=== PATIENT | male | born 1985 | race Caucasian/White ===

== ENCOUNTER → 2017-11-16 | Outpatient (CLI) | payer OTHER ==
[~2017-11-16] MED LIST: NO HOME MEDICATIONS
== END ==
LOC: BHSO 12:33
DX: F43.10 Post-traumatic stress disorder, unspecified (principal)

== ENCOUNTER 2020-03-26 19:14 | Emergency (ER) | payer OTHER ==
[~2020-03-26] VITALS: Ht 167.6 cm; Wt 93.2 kg
[2020-03-26 19:28] VITALS: TEMP 97.6
[2020-03-26] MEDS ORDERED: EFFEXOR XR37.5 MG/CA PO (19:51)
[2020-03-26] MEDS ORDERED: INDERAL 20MG20 MG PO (19:51)
[2020-03-26] MEDS ORDERED: EFFEXOR-XR150 MG PO (19:51)
[2020-03-26 19:52] LABS: BASO # 0.1 (0.0-0.2); BASO % 0.7 % (0.0-2.0); EOS # 0.1 (0.0-0.7); GRAN # 4.1 (1.4-6.5); GRAN % 59.7 % (42.2-75.2); HEMATOCRIT 45.4 % (42.0-52.0); HEMOGLOBIN 15.9 g/dl (13.5-18.0); LYMPH # 1.9 (1.2-3.4); MEAN CELL VOLUME 87 fl (80.0-100.0); MEAN CORPUSCULAR HEMOGLOBIN 30 pg (27.0-31.0); MEAN CORPUSCULAR HGB CONC 35 g/dl (33.0-37.0); MEAN PLATELET VOLUME 8.9 fl (7.4-10.4); MONO # 0.7 (0.1-0.6); MONO % 10.2 % (1.7-9.3); PLATELET COUNT 253 K/mm3 (130-400); RED BLOOD COUNT 5.24 M/mm3 (4.20-5.60); REDCELL DISTRIBUTION WIDTH-CV 12.3 % (11.5-14.5)
[2020-03-26] MEDS ORDERED: PRIL40 PO (19:52)
[2020-03-26 19:53] LABS: INR 1.2 (0.8-3.0); PROTHROMBIN TIME 13.1 SECONDS (9.7-12.8)
[2020-03-26] MEDS ORDERED: MINIPRESS2 MG PO (19:53)
[2020-03-26] MEDS ORDERED: SEROQUEL 2525 MG/TAB PO (19:53)
[2020-03-26 19:58] LABS: ALBUMIN 4.6 gm/dL (3.5-5.0); BILIRUBIN,TOTAL 1.3 mg/dL (0.0-1.0); CALCIUM 9.5 mg/dL (8.4-10.2); CREATININE, serum 1.3 (0.66-1.25); POTASSIUM 4.1 mmol/L (3.4-5.0); TOTAL PROTEIN 8.4 gm/dL (6.4-8.2)
[2020-03-26 20:11] LABS: TROPONIN-I 0.134 ng/mL (0.000-0.035)
[2020-03-26] MEDS ORDERED: LIPITOR 40MG TA40 MG PO (21:37)
[2020-03-26 22:56] VITALS: BP 148/76; PULSE 69
== END 2020-03-26 22:45 | disposition short-term general hospital (02) ==
LOC: COL.ER 19:14
PROVIDERS: Emergency Medicine
DX: I21.4 Non-ST elevation (NSTEMI) myocardial infarction (principal)
CPT/HCPCS: J1170; J1644; J1885; J7030

== ENCOUNTER 2020-05-07 09:36 | Outpatient (RCR) | payer OTHER ==
[~2020-05-07 09:36] MED LIST changes: +EFFEXOR XR37.5 MG/CA PO; +EFFEXOR-XR150 MG PO; +INDERAL 20MG20 MG PO; +LIPITOR 40MG TA40 MG PO; +MINIPRESS2 MG PO; +PRIL40 PO; +SEROQUEL 2525 MG/TAB PO
== END 2020-06-30 06:32 | disposition home or self-care (01) ==
LOC: COL.CR 09:36 → EDSTATUS 15:28 → COL.CR 06-30 06:32
DX: Z48.812 Encounter for surgical aftercare following surgery on the circulatory system (principal); Z98.61 Coronary angioplasty status; I25.2 Old myocardial infarction